=== PATIENT | female | born 1980 | race African-American/Black ===

== ENCOUNTER 2016-06-18 11:21 | Emergency (ER) | payer SELFPAY ==
[2016-06-18 11:26] VITALS: BP 156/91; BMI 32.3
--- NOTE | 2016-06-18 12:17 | DR.GENAD ---
HPI - PCP Primary Care Physician: mckenna - Complaint/Symptoms Chief Complaint:: patient stated she has been having head pressure with her sinuses for 2 to 3 weeks. since wednesday she has been worse. she stated she has a history of sinuses problems. - Source History Provided: Patient - Mode of Arrival Mode of Arrival: Ambulatory - Timing Onset of Chief Complaint: 06/01/16 PMH - PMH Past Medical History: Yes Past Medical History: Hypertension Past Surgical History: Yes Surgical History: - Family History History of Family Medical Conditions: Yes Family Medical History: Hypertension - Social History Does patient currently use any type of tobacco product: Yes Have you used tobacco products in the last 12 months: Yes Type of Tobacco Use: Cigarettes How many years tobacco product used: 12 Does any household member use tobacco: No Alcohol Use: Rarely Do you use any recreational Drugs:: No Lives With: Alone, Family Lives Where: Home - infectious screening In the last 2 months have you had wt loss of >10#?: NO Have you had fever, night sweats or hemotysis?: No Have you traveled outside the country in the last 6 months?: No Isolation: Standard ROS - Review of Systems Eyes: No Symptoms Reported ENTM: Ear Pain, Nose Discharge Respiratoy: No Symptoms Reported Cardiovascular: No Symptoms Reported Gastrointestinal/Abdominal: No Symptoms Reported Genitourinary: No Symptoms Reported Neurological: No Symptoms Reported Musculoskeletal: No Symptoms Reported Integumentary: No Symptoms Reported Hematologic/Lymphatic: No Symptoms Reported Endocrine: No Symptoms Reported Psychiatric: No Symptoms Reported All Other Systems: Reviewed and Negative PE - Vital Signs Vitals: Temperature 98.9 F Pulse Rate 59 Respiratory Rate 18 Blood Pressure 156/91 O2 Sat by Pulse Oximetry 98 - General Limitations: No Limitations General Appearance: Alert, In No Apparent Distress, Appears Intoxicated - Head Head Exam: Normal Inspection, Atraumatic - Eyes Eye exam: Normal Appearance, PERRL - ENT ENT Exam: Normal Oropharynx (Hyperpigmented linear nasal crease) External Ear Exam: Normal External Inspection TM/Canal Exam: Bilateral Normal Nose Exam: Other (turbinates boggy right >left) Mouth Exam: Normal Inspection Throat Exam: Normal Inspection - Neck Neck Exam: Normal Inspection - Chest Chest Inspection: Normal Inspection - Respiratory Respiratory Exam: Normal Lung Sounds Bilat Respiratory Exam: Bilateral Clear to Auscultation - Cardiovascular Cardiovascular Exam: Regular Rate - Abdominal Exam Abdominal Exam: Normal Inspection Abdominal Tenderness: negative: RUQ, RLQ, LUQ, LLQ, Epigastrium, Suprapubic, Diffuse, Mild, Moderate, Severe, Other - Extremities Extremities Exam: Normal Inspection - Back Back Exam: Normal Inspection - Neurologic Neurological Exam: Alert - Psychiatric Psychiatric Exam: Normal Affect, Normal Mood - Skin Skin Exam: Warm, Dry, Intact ROR - Labs Reviewed Laboratory Results Reviewed?: Yes - XRAY XRAY Interpreted by: Self (?ethmoidal sinusitis Left ) - Diagnosis Discharge Problem: Allergic rhinosinusitis Qualifiers: Allergic rhinitis trigger: pollen Allergic rhinitis seasonality: unspecified seasonality Qualified Code(s): J30.1 - Allergic rhinitis due to pollen - Discharge Plan Condition: Stable - Follow ups/Referrals Follow ups/Referrals: NFD,None [Primary Care Provider] - 3 days - Instructions
--- NOTE | 2016-06-18 12:43 | RAD ---
HISTORY: Left maxillary tenderness Study: Sinuses three view Comparison: None Findings: The frontal, ethmoid, sphenoid, and maxillary sinuses are clear as are the mastoid air cells. IMPRESSION: Clear paranasal sinuses Reported By:
== END 2016-06-18 12:51 | disposition home or self-care (01) ==
LOC: ER 11:37
DX: J30.1 Allergic rhinitis due to pollen (principal)
CPT/HCPCS: 70220; 99282

== ENCOUNTER 2016-08-24 06:16 | Emergency (ER) | payer SELFPAY ==
[2016-08-24 06:22] VITALS: BP 140/94; BMI 33.4
--- NOTE | 2016-08-24 06:47 | DR.GENAD ---
HPI - PCP Primary Care Physician: NFD - HPI Comment HPI Comment: WORSE THIS AM WHEN PATIENT WOKE UP. - Complaint/Symptoms Chief Complaint Doctors Comments: DIZZINESS, WEAKNESS, NAUSEA AND VOMITING TIMES ONE DAY. Chief Complaint:: "Yesterday I was feeling bad, but today I woke up and I am feeling really dizzy. I feel like I have to puke. I'm really light headed." - Nurses notes reviewed Nurses Notes Review: Yes - Source History Provided: Patient - Mode of Arrival Mode of Arrival: Ambulatory - Timing Onset of Chief Complaint: 08/23/16 Came on: Suddenly - Duration Duration: Constant Duration: Days - Severity Severity: Moderate PMH - PMH Past Medical History: Yes Past Medical History: Hypertension Past Surgical History: Yes Surgical History: - Family History History of Family Medical Conditions: Yes Family Medical History: Hypertension - Social History Does patient currently use any type of tobacco product: Yes Have you used tobacco products in the last 12 months: Yes Type of Tobacco Use: Cigarettes Does any household member use tobacco: Yes Alcohol Use: Occasionally Do you use any recreational Drugs:: No Lives With: Spouse Lives Where: Home - infectious screening In the last 2 months have you had wt loss of >10#?: NO Have you had fever, night sweats or hemotysis?: No Have you traveled outside the country in the last 6 months?: No Isolation: Standard ROS - Review of Systems Constitutional: No Symptoms Reported Eyes: No Symptoms Reported ENTM: No Symptoms Reported Respiratoy: No Symptoms Reported Cardiovascular: No Symptoms Reported Gastrointestinal/Abdominal: No Symptoms Reported Genitourinary: No Symptoms Reported Neurological: Weakness, Dizziness Musculoskeletal: No Symptoms Reported Integumentary: No Symptoms Reported Hematologic/Lymphatic: No Symptoms Reported All Other Systems: Reviewed and Negative PE - Vital Signs Vitals: Temperature 97.6 F Pulse Rate 72 Respiratory Rate 18 Blood Pressure 140/94 O2 Sat by Pulse Oximetry 97 - General Limitations: No Limitations General Appearance: Alert - Head Head Exam: Normal Inspection - Eyes Eye exam: Normal Appearance - ENT ENT Exam: Normal External Ear Exam External Ear Exam: Normal External Inspection TM/Canal Exam: Bilateral Normal Nose Exam: Normal Nose Exam Mouth Exam: Normal Inspection Throat Exam: Normal Inspection - Neck Neck Exam: Normal Inspection - Chest Chest Inspection: Symmetric Chest Wall Rise - Respiratory Respiratory Exam: Normal Lung Sounds Bilat Respiratory Exam: Bilateral Clear to Auscultation - Cardiovascular Cardiovascular Exam: Regular Rate, Normal Rhythm, Normal Heart Sounds - Abdominal Exam Abdominal Exam: Normal Bowel Sounds, Soft. negative: Tenderness - Extremities Extremities Exam: Normal Inspection - Back Back Exam: Normal Inspection - Neurologic Neurological Exam: Alert, Oriented X3 - Psychiatric Psychiatric Exam: Anxious - Skin Skin Exam: Normal Color MDM - Additional Information Additional Information Obtained From: Family - Differential Diagnosis Differential Diagnosis: DIZZINESS, VERTIGO, CVA, TIA, LABINRITHITIS Course - Treatment Treatment: SEE ORDERS. - Education/Counseling Education/Counseling: Patient, Family, Education Educated On: Treatment, Diagnosis, Needs for Follow Up ROR - Labs Reviewed Laboratory Results Reviewed?: Yes Result Diagrams: 08/24/16 07:02 08/24/16 07:02 Laboratory: WBC 7.1 X10^3/uL (3.6-10.0) 08/24/16 07:02 RBC 4.35 X10^6/uL (3.5-5.4) 08/24/16 07:02 Hgb 13.0 g/dL (12.0-16.0) 08/24/16 07:02 Hct 39.1 % (36.0-47.0) 08/24/16 07:02 MCV 89.7 fL (80.0-100.0) 08/24/16 07:02 MCH 30.0 pg (27.0-34.0) 08/24/16 07:02 MCHC 33.4 g/dL (33.0-35.0) 08/24/16 07:02 RDW 14.9 % (11.6-16.5) 08/24/16 07:02 Plt Count 187 X10^3/uL (150.0-450.0) 08/24/16 07:02 MPV 9.6 fL (7.4-11.0) 08/24/16 07:02 Neut % 55.5 % (42.0-75.0) 08/24/16 07:02 Lymph % 32.1 % (21.0-51.0) 08/24/16 07:02 [place] % 7.9 % (0.0-13.0) 08/24/16 07:02 Eos % 3.6 % (0.9-2.9) H 08/24/16 07:02 Baso % 0.9 % (0.2-1.0) 08/24/16 07:02 Neut # 3.9 x10^3/uL (2.2-4.8) 08/24/16 07:02 Lymph # 2.3 X10^3/uL (1.3-2.9) 08/24/16 07:02 [place] # 0.6 x10^3/uL (0.3-0.8) 08/24/16 07:02 Eos # 0.3 x10^3/uL (0.0-0.2) H 08/24/16 07:02 Baso # 0.1 X10^3/uL (0.0-0.1) 08/24/16 07:02 Absolute Nucleated RBC 0.0 /100WBC 08/24/16 07:02 Sodium 144 mmol/L (136-145) 08/24/16 07:02 Corrected Sodium TNP 08/24/16 07:02 Potassium 3.4 mmol/L (3.5-5.1) L 08/24/16 07:02 Chloride 109 mmol/L (98-107) H 08/24/16 07:02 Carbon Dioxide 28.2 mmol/L (21-32) 08/24/16 07:02 BUN 15 mg/dL (7-18) 08/24/16 07:02 Creatinine 1.19 mg/dL (0.55-1.02) H 08/24/16 07:02 Est GFR (MDRD) Af Amer > 60 (>60) 08/24/16 07:02 Est GFR (MDRD) Non-Af 54 (>60) L 08/24/16 07:02 Glucose 84 mg/dL (65-99) 08/24/16 07:02 Calcium 8.1 mg/dL (8.5-10.1) L 08/24/16 07:02 Corrected Calcium 8.7 mg/dL (8.5-10.1) 08/24/16 07:02 Total Bilirubin 0.20 mg/dL (0.2-1.0) 08/24/16 07:02 AST 15 Units/L (15-37) 08/24/16 07:02 ALT 20 Units/L (12-78) 08/24/16 07:02 Alkaline Phosphatase 69 Units/L (46-116) 08/24/16 07:02 Creatine Kinase 203 Units/L (26-192) H 08/24/16 07:02 CK-MB (CK-2) 1.0 ng/mL (0-4.0) 08/24/16 07:02 CK/CKMB % Calc 0.5 % (<4) 08/24/16 07:02 Troponin I < 0.02 ng/mL (0-1.5) 08/24/16 07:02 Total Protein 6.6 g/dL (6.4-8.2) 08/24/16 07:02 Albumin 3.3 g/dL (3.4-5.0) L 08/24/16 07:02 Globulin 3.3 g/dL (2.5-4.5) 08/24/16 07:02 Albumin/Globulin Ratio 1.0 Ratio (1.1-2.1) L 08/24/16 07:02 Specimen Type Clean catch urine 08/24/16 07:39 Urine Color Yellow (YELLOW) 08/24/16 07:39 Urine Appearance Slightly hazy (CLEAR) 08/24/16 07:39 Urine pH 6.0 (5.0 - 8.0) 08/24/16 07:39 Ur Specific [place] 1.020 (1.000-1.030) 08/24/16 07:39 Urine Protein Negative (NEGATIVE) 08/24/16 07:39 Urine Glucose (UA) Negative (NEGATIVE) 08/24/16 07:39 Urine Ketones Negative (NEGATIVE) 08/24/16 07:39 Urine Occult Blood Negative (NEGATIVE) 08/24/16 07:39 Urine Nitrite Negative (NEGATIVE) 08/24/16 07:39 Urine Bilirubin Negative (NEGATIVE) 08/24/16 07:39 Urine Urobilinogen Normal (NORMAL) 08/24/16 07:39 Ur Leukocyte Esterase 1+ (NEGATIVE) 08/24/16 07:39 Urine RBC 0-1 /HPF (NEGATIVE) 08/24/16 07:39 Urine WBC 4-8 /HPF (NEGATIVE) 08/24/16 07:39 Ur Squamous Epith Cells Moderate /HPF (NEGATIVE) 08/24/16 07:39 Urine Bacteria Trace /HPF (NEGATIVE) 08/24/16 07:39 Ur Culture Indicated? No/not indicated 08/24/16 07:39 - XRAY XRAY Interpreted by: Radiologist XRAY Findings: REPORT DISCUSS WITH PATIENT. - EKG Rhythm: NSR (EKG NOTED) - Diagnosis Discharge Problem: Dizziness, Vertigo - Discharge Plan Disposition: 01 HOME, SELF-CARE Condition: Stable Prescriptions: Meclizine HCl [ANTIVERT 25 MG *] 25 mg PO TID PRN #30 tab PRN Reason: MOTION SICKNESS Ondansetron HCl [Zofran Tab 4 mg] 4 mg PO Q8H PRN #12 tab PRN Reason: Nausea/Vomiting - Follow ups/Referrals Follow ups/Referrals: NFD,None [Primary Care Provider] - 3 days - Instructions Instructions: Dizziness, [id number], Vertigo, [id number] Additional Instructions: RETURN TO ED IF WORSE.
[2016-08-24] MEDS ORDERED: ANTIVERT TAB 25 MG PO ONE (06:59)
[2016-08-24] MEDS ORDERED: ZOFRAN TAB 4 MG PO ONE (07:00)
[2016-08-24 07:16] LABS: BASOPHILS # (AUTO) 0.1 X10^3/uL (0.0-0.1); BASOPHILS % (AUTO) 0.9 % (0.2-1.0); EOSINOPHILS # (AUTO) 0.3 x10^3/uL (0.0-0.2); EOSINOPHILS % (AUTO) 3.6 % (0.9-2.9); HEMATOCRIT 39.1 % (36.0-47.0); LYMPHOCYTES # (AUTO) 2.3 X10^3/uL (1.3-2.9); LYMPHOCYTES % (AUTO) 32.1 % (21.0-51.0); MEAN CORPUSCULAR HGB CONC 33.4 g/dL (33.0-35.0); MEAN CORPUSCULAR VOLUME 89.7 fL (80.0-100.0); MEAN PLATELET VOLUME 9.6 fL (7.4-11.0); MONOCYTES # (AUTO) 0.6 x10^3/uL (0.3-0.8); MONOCYTES % (AUTO) 7.9 % (0.0-13.0); NEUTROPHILS # (AUTO) 3.9 x10^3/uL (2.2-4.8); NEUTROPHILS % (AUTO) 55.5 % (42.0-75.0); PLATELET COUNT 187 X10^3/uL (150.0-450.0); RED BLOOD COUNT 4.35 X10^6/uL (3.5-5.4); RED CELL DISTRIBUTION WIDTH 14.9 % (11.6-16.5); WHITE BLOOD COUNT 7.1 X10^3/uL (3.6-10.0)
[2016-08-24 07:24] LABS: ALANINE AMINOTRANSFERASE 20 Units/L (12-78); ALBUMIN 3.3 g/dL (3.4-5.0); ALKALINE PHOSPHATASE 69 Units/L (46-116); ASPARTATE AMINO TRANSFERASE 15 Units/L (15-37); BLOOD UREA NITROGEN 15 mg/dL (7-18); CALCIUM 8.1 mg/dL (8.5-10.1); CARBON DIOXIDE 28.2 mmol/L (21-32); CHLORIDE 109 mmol/L (98-107); COR CA(FOR HYPOALB) 8.7 mg/dL (8.5-10.1); CREATININE 1.19 mg/dL (0.55-1.02); GLUCOSE 84 mg/dL (65-99); SODIUM 144 mmol/L (136-145); TOTAL PROTEIN 6.6 g/dL (6.4-8.2); eGFR BLACK RACES > 60 (>60); eGFR NON BLACK RACES 54 (>60)
--- NOTE | 2016-08-24 07:25 | CT ---
HISTORY: Dizziness Study: CT brain without contrast Comparison: None available Technique: Multiple axial images of the brain were obtained from the skull base to the vertex without administr ation of IV contrast. Coronal and sagittal reformats were performed. Dose reduction procedures were used with MA/kv adjusted for body size. Findings: No acute intraparenchymal hemorrhage or mass can be identified. No extra-axial fluid collections ar e seen. No alteration in the attenuation of the brain parenchyma can be identified to suggest acute or subacute ischemic change. The ventricular system is symmetric and nondilated. The extracranial structures are grossly unremarkable. IMPRESSION: No significant intracranial abnormality identified Reported By:
[2016-08-24 07:32] LABS: CKMB % 0.5 % (<4); CREATINE KINASE 203 Units/L (26-192); TROPONIN I < 0.02 ng/mL (0-1.5)
[2016-08-24] MEDS ORDERED: K-DUR TAB 20 MEQ PO ONE ×2 (07:46→07:51)
[2016-08-24 07:50] LABS: BILIRUBIN,URINE NEGATIVE (NEGATIVE); BLOOD/HEMOGLOBIN,URINE NEGATIVE (NEGATIVE); GLUCOSE, URINE NEGATIVE (NEGATIVE); KETONES,URINE NEGATIVE (NEGATIVE); LEUKOCYTE ESTERASE ,URINE 1+ (NEGATIVE); NITRITES,URINE NEGATIVE (NEGATIVE); PROTEIN,URINE NEGATIVE (NEGATIVE); UROBILINOGEN,URINE NORMAL (NORMAL)
[2016-08-24] MEDS ORDERED: ZOFRAN TAB 4 MG ONE (07:51)
[2016-08-24] MEDS ORDERED: ANTIVERT TAB 25 MG ONE (07:52)
[2016-08-24 08:05] LABS: APPEARANCE,URINE SLIGHTLY HAZY (CLEAR); BACTERIA,URINE TRACE /HPF (NEGATIVE); COLOR,URINE YELLOW (YELLOW); RBC,URINE 0-1 /HPF (NEGATIVE); SQUAMOUS EPITHELIAL CELL,UR MODERATE /HPF (NEGATIVE)
== END 2016-08-24 08:20 | disposition home or self-care (01) ==
LOC: ER 06:16
DX: R42 Dizziness and giddiness (principal)
CPT/HCPCS: 36415; 70450; 80053; 81001; 82550; 82553; 84484; 85025; 93005; 93010; 99283; S0181

== ENCOUNTER 2016-12-10 12:29 | Emergency (ER) | payer SELFPAY ==
[2016-12-10 12:32] VITALS: BP 152/92; BMI 31.1
--- NOTE | 2016-12-10 12:47 | DR.GENAD ---
HPI - PCP Primary Care Physician: NFD - Complaint/Symptoms Chief Complaint Doctors Comments: Patient reports that she has been working 12 hours daily for two weeks and not getting her rest. She complains of left cheek swelling. Chief Complaint:: PT C/O SWOLLEN LT SIDE OF FACE AND BACK PAIN. PT STATES SHE HAS A SYNCOPAL EPISODE LAST NIGHT AND HER SAID SHE HIT HER FACE ON THE BED POST. PT STATES THIS HAS HAPPENED BEFORE WHEN SHE HAD AN ANXIETY ATTACK. - Source History Provided: Patient - Mode of Arrival Mode of Arrival: Ambulatory - Timing Onset of Chief Complaint: 12/09/16 PMH - PMH Past Medical History: Yes Past Medical History: Hypertension Past Surgical History: Yes Surgical History: - Family History History of Family Medical Conditions: Yes Family Medical History: Hypertension - Social History Does patient currently use any type of tobacco product: Yes Have you used tobacco products in the last 12 months: Yes Type of Tobacco Use: Cigarettes Does any household member use tobacco: Yes Alcohol Use: Rarely Do you use any recreational Drugs:: No Lives With: Family Lives Where: Home - infectious screening In the last 2 months have you had wt loss of >10#?: NO Have you had fever, night sweats or hemotysis?: No Have you traveled outside the country in the last 6 months?: No Isolation: Standard ROS - Review of Systems Eyes: No Symptoms Reported ENTM: No Symptoms Reported Respiratoy: No Symptoms Reported Cardiovascular: No Symptoms Reported Gastrointestinal/Abdominal: No Symptoms Reported Genitourinary: No Symptoms Reported Neurological: No Symptoms Reported Musculoskeletal: No Symptoms Reported Integumentary: No Symptoms Reported Hematologic/Lymphatic: No Symptoms Reported Endocrine: No Symptoms Reported Psychiatric: No Symptoms Reported All Other Systems: Reviewed and Negative PE - Vital Signs Vitals: Temperature 98.2 F Pulse Rate 79 Respiratory Rate 20 Blood Pressure 152/92 O2 Sat by Pulse Oximetry 97 - General Limitations: No Limitations General Appearance: Alert, In No Apparent Distress - Head Head Exam: Normal Inspection, Atraumatic - Eyes Eye exam: Normal Appearance, PERRL, EOMI - ENT ENT Exam: Mucous Membranes Moist, Other (bilateral boggy turbinates) External Ear Exam: Normal External Inspection TM/Canal Exam: Bilateral Normal Nose Exam: Normal Nose Exam Mouth Exam: Normal Inspection Throat Exam: Normal Inspection - Neck Neck Exam: Normal Inspection - Chest Chest Inspection: Normal Inspection - Respiratory Respiratory Exam: Normal Lung Sounds Bilat Respiratory Exam: Bilateral Clear to Auscultation - Cardiovascular Cardiovascular Exam: Regular Rate, Normal Rhythm - Abdominal Exam Abdominal Exam: Normal Inspection, Normal Bowel Sounds Abdominal Tenderness: negative: RUQ, RLQ, LUQ, LLQ, Epigastrium, Suprapubic, Diffuse, Mild, Moderate, Severe, Other - Extremities Extremities Exam: Normal Inspection - Back Back Exam: Normal Inspection, Full ROM - Neurologic Neurological Exam: Alert, Oriented X3, CN II-XII Intact - Psychiatric Psychiatric Exam: Normal Affect - Skin Skin Exam: Warm, Dry, Intact Course - Education/Counseling Education/Counseling: Patient, Education - Diagnosis Discharge Problem: Exhaustion Allergic rhinitis Qualifiers: Chronicity: chronic Allergic rhinitis trigger: unspecified Allergic rhinitis seasonality: non-seasonal Qualified Code(s): J30.89 - Other allergic rhinitis - Discharge Plan Condition: Stable - Follow ups/Referrals Follow ups/Referrals: NFD,None [Primary Care Provider] - 3 days - Instructions
== END 2016-12-10 13:06 | disposition home or self-care (01) ==
LOC: ER 12:35
DX: R53.83 Other fatigue (principal); J30.89 Other allergic rhinitis
CPT/HCPCS: 99281; 99282

== ENCOUNTER 2016-12-17 21:19 | Emergency (ER) | payer SELFPAY ==
[2016-12-17 21:26] VITALS: BMI 31.1
--- NOTE | 2016-12-17 22:52 | DR.GENAD ---
HPI - PCP Primary Care Physician: NFD - HPI Comment HPI Comment: PATIENT HAVE COLD, COUGH AND CONGESTION WITH SINUS HEADACHE FOR FEW DAYS. GETTING WORSE. TODAY, CHILLS AND COLD SWEATS STARTED. WEAK AND FATIGUE. - Complaint/Symptoms Chief Complaint Doctors Comments: FEVER, CHILLS AND BODY ACHES WITH COLD SWEATS TODAY. Chief Complaint:: CHILLS NIGHT SWEATS - Nurses notes reviewed Nurses Notes Review: Yes - Source History Provided: Patient - Mode of Arrival Mode of Arrival: Ambulatory - Timing Onset of Chief Complaint: 12/17/16 Came on: Suddenly - Duration Duration: Constant Duration: Days - Severity Severity: Moderate PMH - PMH Past Medical History: Yes Past Medical History: Hypertension Past Surgical History: Yes Surgical History: - Family History History of Family Medical Conditions: Yes Family Medical History: Coronary Artery Disease, Hypertension - Social History Does patient currently use any type of tobacco product: Yes Have you used tobacco products in the last 12 months: Yes Type of Tobacco Use: Cigarettes Does any household member use tobacco: No Alcohol Use: Occasionally Do you use any recreational Drugs:: No Lives With: Family Lives Where: Home - infectious screening In the last 2 months have you had wt loss of >10#?: NO Have you had fever, night sweats or hemotysis?: No Have you traveled outside the country in the last 6 months?: No Isolation: Standard ROS - Review of Systems Constitutional: Chills, Diaphoresis, Fever, Weakness, Fatigue Eyes: No Symptoms Reported. negative: Eye Pain, Discharge ENTM: Nose Discharge, Nose Congestion, Throat Pain. negative: Ear Pain Respiratoy: Productive Cough. negative: Short of Breath, Wheezing Cardiovascular: No Symptoms Reported. negative: Chest Pain, Edema Gastrointestinal/Abdominal: No Symptoms Reported, Nausea. negative: Abdominal Pain, Diarrhea, Vomiting Genitourinary: No Symptoms Reported. negative: Dysuria, Frequency, Hematuria Neurological: Headache, Weakness, Dizziness Musculoskeletal: Muscle Pain Integumentary: No Symptoms Reported. negative: Rash, Juandice Hematologic/Lymphatic: No Symptoms Reported Endocrine: No Symptoms Reported All Other Systems: Reviewed and Negative PE - Vital Signs Vitals: Temperature 98.2 F Pulse Rate [Left] 65 Pulse Rate 63 Respiratory Rate 14 Blood Pressure [Right Arm] 131/77 Blood Pressure 135/85 O2 Sat by Pulse Oximetry 100 - General Limitations: No Limitations General Appearance: Alert - Head Head Exam: Normal Inspection - Eyes Eye exam: Normal Appearance - ENT ENT Exam: Normal External Ear Exam External Ear Exam: Normal External Inspection TM/Canal Exam: Bilateral Normal Nose Exam: Normal Nose Exam Mouth Exam: Normal Inspection Throat Exam: Normal Inspection - Neck Neck Exam: Normal Inspection - Chest Chest Inspection: Symmetric Chest Wall Rise - Respiratory Respiratory Exam: Normal Lung Sounds Bilat Respiratory Exam: Bilateral Clear to Auscultation - Cardiovascular Cardiovascular Exam: Regular Rate, Normal Rhythm - Abdominal Exam Abdominal Exam: Normal Bowel Sounds - Extremities Extremities Exam: Normal Inspection - Back Back Exam: Normal Inspection - Psychiatric Psychiatric Exam: Normal Affect, Normal Mood - Skin Skin Exam: Erythema MDM - Differential Diagnosis Differential Diagnosis: FLU, BRONCHITIS, SINUSITIS Course - Treatment Treatment: SEE ORDERS. PO MEDS IN ED. - Education/Counseling Education/Counseling: Patient, Education Educated On: Treatment, Diagnosis, Needs for Follow Up ROR - Labs Reviewed Laboratory: Influenza Type A (PCR) Negative (NEGATIVE) 12/17/16 23:01 Influenza Type B (PCR) Negative (NEGATIVE) 12/17/16 23:01 - Diagnosis Discharge Problem: Bronchitis Sinusitis Qualifiers: Sinusitis location: unspecified location Chronicity: acute Recurrence: not specified as recurrent Qualified Code(s): J01.90 - Acute sinusitis, unspecified - Discharge Plan Disposition: 01 HOME, SELF-CARE Condition: Stable Prescriptions: Amoxicillin [Amoxil 875 mg] 875 mg PO Q12H #20 tab Cetirizine HCl [Zyrtec Tab 10 mg] 10 mg PO DAILY PRN #30 tab PRN Reason: Promethazine W/Codeine [PHENERGAN W/CODEINE 6.25mg/10mg (5mL) *] 10 ml PO Q6H PRN #120 ml PRN Reason: Cough - Follow ups/Referrals Follow ups/Referrals: NFD,None [Primary Care Provider] - 3 days - Instructions Instructions: Sinusitis, Adult, [id number], Acute Bronchitis, [id number] Additional Instructions: RETURN TO ED IF WORSE.
[2016-12-17] MEDS ORDERED: AMOXIL CAP 500 MG PO ONE (23:01)
[2016-12-17] MEDS ORDERED: ZyrTEC TAB 10 MG PO ONE (23:02)
[2016-12-17 23:42] VITALS: BP 131/77
== END 2016-12-17 23:38 | disposition home or self-care (01) ==
LOC: ER 21:37
DX: J40 Bronchitis, not specified as acute or chronic (principal); J01.80 Other acute sinusitis
CPT/HCPCS: 87502; 99282

== ENCOUNTER 2017-01-15 15:51 | Emergency (ER) | payer SELFPAY ==
[2017-01-15 15:55] VITALS: BMI 32.3
--- NOTE | 2017-01-15 17:27 | DR.GENAD ---
HPI - PCP Primary Care Physician: NFD - HPI Comment HPI Comment: GETTING WORSE. COUGH PRODUCTIVE WITH YELLOW SPUTUM. SOME CHEST DISCOMFORT PRESENT. MEDS TRIED SO FAR NOT HELPING. - Complaint/Symptoms Chief Complaint Doctors Comments: FEVER, CHILLS, COUGH, CONGESTION AND HEADACHE TIMES 3 DAYS. Chief Complaint:: PT C/O H/A, BODY ACHES, FEVER, CHILLS. PT STATES THEY STARTED X 3 DAYS AGO. - Nurses notes reviewed Nurses Notes Review: Yes - Source History Provided: Patient - Mode of Arrival Mode of Arrival: Ambulatory - Timing Onset of Chief Complaint: 01/12/17 Came on: Suddenly - Duration Duration: Constant Duration: Days - Severity Severity: Moderate PMH - PMH Past Medical History: Yes Past Medical History: Hypertension Past Surgical History: Yes Surgical History: - Family History History of Family Medical Conditions: Yes Family Medical History: Coronary Artery Disease, Hypertension - Social History Does patient currently use any type of tobacco product: Yes Have you used tobacco products in the last 12 months: Yes Type of Tobacco Use: Cigarettes Does any household member use tobacco: Yes Alcohol Use: None Do you use any recreational Drugs:: No Lives With: Family Lives Where: Home - infectious screening In the last 2 months have you had wt loss of >10#?: NO Have you had fever, night sweats or hemotysis?: No Have you traveled outside the country in the last 6 months?: No Isolation: Standard ROS - Review of Systems Constitutional: No Symptoms Reported Eyes: No Symptoms Reported ENTM: Nose Discharge, Nose Congestion, Throat Pain. negative: Ear Pain Respiratoy: Non-Productive Cough. negative: Productive Cough, Short of Breath, Wheezing, Hemoptysis Cardiovascular: Chest Pain Gastrointestinal/Abdominal: No Symptoms Reported Genitourinary: No Symptoms Reported Neurological: No Symptoms Reported Musculoskeletal: No Symptoms Reported Integumentary: No Symptoms Reported Hematologic/Lymphatic: No Symptoms Reported Endocrine: No Symptoms Reported All Other Systems: Reviewed and Negative PE - Vital Signs Vitals: Temperature 97.6 F Pulse Rate [Left] 58 Pulse Rate 67 Respiratory Rate 16 Blood Pressure [Right Arm] 139/88 Blood Pressure 159/91 O2 Sat by Pulse Oximetry 99 - General Limitations: No Limitations General Appearance: Alert - Head Head Exam: Normal Inspection - Eyes Eye exam: Normal Appearance - ENT ENT Exam: Normal External Ear Exam External Ear Exam: Normal External Inspection TM/Canal Exam: Bilateral Bulging Nose Exam: Normal Nose Exam Mouth Exam: Normal Inspection Throat Exam: Tonsillar Erythema. negative: Tonsillomegaly, Tonsillar Exudate, R Peritonsillar Mass, L Peritonsillar Mass, Muffled Voice - Neck Neck Exam: negative: Trachea Midline, Tenderness, Meningismus, Lymphadenopathy - Chest Chest Inspection: Symmetric Chest Wall Rise - Respiratory Respiratory Exam: Normal Lung Sounds Bilat Respiratory Exam: Bilateral Clear to Auscultation - Cardiovascular Cardiovascular Exam: Regular Rate - Abdominal Exam Abdominal Exam: Normal Inspection - Extremities Extremities Exam: Normal Inspection - Back Back Exam: Normal Inspection - Neurologic Neurological Exam: Alert, Oriented X3 - Psychiatric Psychiatric Exam: Normal Affect - Skin Skin Exam: Warm MDM - Differential Diagnosis Differential Diagnosis: SINUSITIS , BRONCHITIS, PNEUMONIA Course - Treatment Treatment: SEE ORDERS. - Education/Counseling Education/Counseling: Patient, Education Educated On: Treatment, Diagnosis, Needs for Follow Up ROR - Labs Reviewed Laboratory Results Reviewed?: Yes Laboratory: 01/15/17 17:58 Throat Throat Culture - Final HCG, Qual Negative <10 mIU/mL 01/15/17 18:20 Influenza Type A (PCR) Negative (NEGATIVE) 01/15/17 17:58 Influenza Type B (PCR) Negative (NEGATIVE) 01/15/17 17:58 Streptococcus Screen Negative (NEGATIVE) 01/15/17 17:58 - XRAY XRAY Interpreted by: Radiologist XRAY Findings: REPORT DISCUSS WITH PATIENT. - Diagnosis Discharge Problem: Bronchitis Sinusitis Qualifiers: Sinusitis location: unspecified location Chronicity: acute Recurrence: not specified as recurrent Qualified Code(s): J01.90 - Acute sinusitis, unspecified - Discharge Plan Disposition: HOME, SELF-CARE Condition: Stable Prescriptions: Amoxicillin [Amoxil 875 mg] 875 mg PO Q12H #20 tab Cetirizine HCl [Zyrtec Tab 10 mg] 10 mg PO DAILY #30 tab Promethazine W/Codeine [PHENERGAN W/CODEINE 6.25mg/10mg (5mL) *] 10 ml PO Q6H PRN #120 ml PRN Reason: Cough - Follow ups/Referrals Follow ups/Referrals: NFD,None [Primary Care Provider] - 3 days - Instructions Instructions: Sinusitis, Adult, [id number], Acute Bronchitis, [id number] Additional Instructions: RETURN TO ED IF WORSE.
[2017-01-15 18:46] LABS: SERUM PREGNANCY TEST, QUAL NEGATIVE <10 mIU/mL
--- NOTE | 2017-01-15 19:18 | RAD ---
Chest, two views Indication: Headache, body aches, fever, chills Comparison: None Findings: The heart size is normal. No focal consolidation, effusion or pneumothorax is identified. O sseous thorax is unremarkable. Impression: No acute cardiopulmonary abnormality. Reported By:
[2017-01-15] MEDS ORDERED: ZyrTEC TAB 10 MG ONE (19:29)
[2017-01-15] MEDS ORDERED: AMOXIL CAP 500 MG PO ONE ×2 (19:29→19:32)
[2017-01-15] MEDS ORDERED: PHENERGAN W/CODEINE 6.25MG/10MG ONE (19:30)
[2017-01-15] MEDS ORDERED: PHENERGAN W/CODEINE 6.25MG/10MG PO ONE (19:32)
[2017-01-15] MEDS ORDERED: ZyrTEC TAB 10 MG PO ONE (19:33)
[2017-01-15 19:40] VITALS: BP 139/88
[2017-01-18] MEDS ORDERED: NS 1000 ML 1,000 ML IV SCH (23:45)
== END 2017-01-15 19:40 | disposition home or self-care (01) ==
LOC: ER 16:00
DX: J40 Bronchitis, not specified as acute or chronic (principal); J01.80 Other acute sinusitis
CPT/HCPCS: 36415; 71020; 84703; 87070; 87502; 87880; 99282; 99283

== ENCOUNTER 2017-05-01 14:23 | Emergency (ER) | payer SELFPAY ==
[2017-05-01 14:28] VITALS: BP 139/80
[2017-05-01 14:35] VITALS: BMI 33.7
--- NOTE | 2017-05-01 14:57 | DR.GENAD ---
HPI - PCP Primary Care Physician: NFD - Complaint/Symptoms Chief Complaint:: PATIENT C/O LOWER BACK PAIN, AND CONSTANT, SORE STOMACH PAIN. SHE STATES THAT SHE JUST GOT HER MENSTRUAL CYCLE YESTERDAY FOR THE FIRST TIME SINCE .PATIENT STATES SHE HAS NEVER HAD PAIN LIKE THIS BEFORE. PATIENT STATES THAT SHE TOOK HOME TEST AND IT WAS NEGATIVE Self Treatment fo Chief Complaint: IBUPROFEN - Nurses notes reviewed Nurses Notes Review: Yes - Source History Provided: Patient - Mode of Arrival Mode of Arrival: Ambulatory - Timing Onset of Chief Complaint: 04/26/17 PMH - PMH Past Medical History: Yes Past Medical History: Hypertension Past Surgical History: Yes Surgical History: - Family History History of Family Medical Conditions: Yes Family Medical History: Coronary Artery Disease, Hypertension Family Medical History Comment: HYPOTHYROIDISM - Social History Does patient currently use any type of tobacco product: Yes Have you used tobacco products in the last 12 months: Yes Type of Tobacco Use: Cigarettes Alcohol Use: Occasionally Do you use any recreational Drugs:: No Lives With: Family Lives Where: Home - infectious screening In the last 2 months have you had wt loss of >10#?: NO Have you had fever, night sweats or hemotysis?: No Have you traveled outside the country in the last 6 months?: No ROS - Review of Systems Constitutional: No Symptoms Reported Eyes: No Symptoms Reported ENTM: Throat Pain Respiratoy: No Symptoms Reported Cardiovascular: No Symptoms Reported Gastrointestinal/Abdominal: No Symptoms Reported Genitourinary: No Symptoms Reported, Other (curreently menstruating) Neurological: No Symptoms Reported Musculoskeletal: Back Pain Integumentary: No Symptoms Reported Hematologic/Lymphatic: No Symptoms Reported Endocrine: No Symptoms Reported Psychiatric: No Symptoms Reported All Other Systems: Reviewed and Negative PE - Vital Signs Vitals: Temperature 97.3 F Pulse Rate [Left Brachial] 72 Pulse Rate 72 Respiratory Rate 22 Blood Pressure [Left Arm] 139/80 Blood Pressure [Right Arm] 139/88 Blood Pressure 139/80 O2 Sat by Pulse Oximetry 100 - General Limitations: No Limitations General Appearance: Alert, In No Apparent Distress - Head Head Exam: Normal Inspection - Eyes Eye exam: Normal Appearance - ENT ENT Exam: Normal Exam, Normal Oropharynx - Neck Neck Exam: Normal Inspection - Chest Chest Inspection: Normal Inspection - Respiratory Respiratory Exam: Normal Lung Sounds Bilat - Cardiovascular Cardiovascular Exam: Regular Rate, Normal Rhythm, +S1, +S2 - Abdominal Exam Abdominal Exam: Normal Inspection, Normal Bowel Sounds, Soft - Extremities Extremities Exam: Normal Inspection - Back Back Exam: Normal Inspection - Neurologic Neurological Exam: Alert, Oriented X3 - Psychiatric Psychiatric Exam: Normal Affect, Normal Mood - Skin Skin Exam: Warm, Dry, Intact, Normal Color ROR - Labs Reviewed Laboratory: HCG, Qual Negative <10 mIU/mL 05/01/17 15:00 S. pyogenes (TEM-PCR) Not detected (NOT DETECT) 05/01/17 15:43 - Diagnosis Discharge Problem: Menstrual cramps, Sore throat - Discharge Plan Disposition: HOME, SELF-CARE Condition: Stable - Follow ups/Referrals Follow ups/Referrals: NFD,None [Primary Care Provider] - 3 days - Instructions Instructions: Dysmenorrhea, Sore Throat, [id number]
[2017-05-01] MEDS ORDERED: TORADOL 60 MG VIAL IM ONE (15:00)
[2017-05-01 15:31] LABS: SERUM PREGNANCY TEST, QUAL NEGATIVE <10 mIU/mL
[2017-05-01] MEDS ORDERED: TORADOL 60 MG VIAL ONE (15:32)
== END 2017-05-01 16:49 | disposition home or self-care (01) ==
LOC: ER 14:23
DX: N94.6 Dysmenorrhea, unspecified (principal); J02.9 Acute pharyngitis, unspecified
CPT/HCPCS: 36415; 84703; 87651; 96372; 99282; J1885

== ENCOUNTER 2017-06-01 17:37 | Emergency (ER) | payer SELFPAY ==
[2017-06-01 17:42] VITALS: BP 128/89; BMI 33.9
--- NOTE | 2017-06-01 18:20 | DR.GENAD ---
HPI - PCP Primary Care Physician: [email or web address] - HPI Comment HPI Comment: HISTORY CHRONIC HEADACHE DIADNOSE MIGRAINE. MEDS AT HOME DID NOT HELP HEADACHE. NO TRAUMA. NO SINUS SYMPTOMS. NAUSEA BUT NO VOMITING. - Complaint/Symptoms Chief Complaint Doctors Comments: PERSISTENT HEADACHE TIMES 3 DAYS. Chief Complaint:: headache since Wednesday no relief from motrin or a goody powder - Nurses notes reviewed Nurses Notes Review: Yes - Source History Provided: Patient - Mode of Arrival Mode of Arrival: Ambulatory - Timing Onset of Chief Complaint: 05/29/17 Came on: Suddenly - Duration Duration: Constant Duration: Days - Severity Severity: Moderate PMH - PMH Past Medical History: Yes Past Medical History: Hypertension Past Surgical History: Yes Surgical History: - Family History History of Family Medical Conditions: Yes Family Medical History: Coronary Artery Disease, Hypertension - Social History Does any household member use tobacco: Yes Alcohol Use: Occasionally Do you use any recreational Drugs:: No Lives With: Family Lives Where: Home - infectious screening In the last 2 months have you had wt loss of >10#?: NO Have you had fever, night sweats or hemotysis?: No Have you traveled outside the country in the last 6 months?: No Isolation: Standard ROS - Review of Systems Constitutional: No Symptoms Reported Eyes: No Symptoms Reported. negative: Eye Pain, Tearing, Discharge ENTM: No Symptoms Reported. negative: Ear Pain, Nose Discharge, Nose Congestion , Throat Pain Respiratoy: No Symptoms Reported. negative: Productive Cough, Short of Breath, Wheezing, Hemoptysis Cardiovascular: No Symptoms Reported. negative: Chest Pain Gastrointestinal/Abdominal: Nausea. negative: Abdominal Pain, Vomiting Genitourinary: No Symptoms Reported. negative: Dysuria, Frequency, Hematuria Neurological: Headache. negative: Dizziness Musculoskeletal: No Symptoms Reported Integumentary: No Symptoms Reported Hematologic/Lymphatic: No Symptoms Reported Endocrine: No Symptoms Reported All Other Systems: Reviewed and Negative PE - Vital Signs Vitals: Temperature 98.8 F Pulse Rate 74 Respiratory Rate 18 Blood Pressure [Left Arm] 139/80 Blood Pressure [Right Arm] 139/88 Blood Pressure 128/89 O2 Sat by Pulse Oximetry 100 - General Limitations: No Limitations General Appearance: Alert - Head Head Exam: Normal Inspection - Eyes Eye exam: Normal Appearance - ENT ENT Exam: Normal External Ear Exam External Ear Exam: Normal External Inspection TM/Canal Exam: Bilateral Normal Nose Exam: Normal Nose Exam Mouth Exam: Normal Inspection Throat Exam: Normal Inspection - Neck Neck Exam: Trachea Midline - Chest Chest Inspection: Symmetric Chest Wall Rise - Respiratory Respiratory Exam: Normal Lung Sounds Bilat Respiratory Exam: Bilateral Clear to Auscultation - Cardiovascular Cardiovascular Exam: Regular Rate, Normal Rhythm, Normal Heart Sounds - Abdominal Exam Abdominal Exam: Normal Bowel Sounds, Soft. negative: Tenderness - Extremities Extremities Exam: Normal Inspection - Back Back Exam: Normal Inspection - Neurologic Neurological Exam: Alert, Oriented X3, CN II-XII Intact, Normal Gait, Reflexes Normal. negative: Motor Sensory Deficit - Psychiatric Psychiatric Exam: Normal Affect, Normal Mood - Skin Skin Exam: Normal Color MDM - Differential Diagnosis Differential Diagnosis: MIGRAINE HEADACHE, SINUSITIS Course - Treatment Treatment: SEE ORDERS. IM PAIN MED IN ED. - Reevaluation 1st: Improved - Education/Counseling Education/Counseling: Patient, Education Educated On: Treatment, Diagnosis, Needs for Follow Up - Diagnosis Discharge Problem: Migraine headache Qualifiers: Migraine type: unspecified Status migrainosus presence: with status migrainosus Intractability: intractable Qualified Code(s): G43.911 - Migraine, unspecified, intractable, with status migrainosus - Discharge Plan Disposition: HOME, SELF-CARE Condition: Stable Prescriptions: [id number] [Fioricet Tab] 1 tab PO Q8H PRN #30 tab PRN Reason: Migraine Headache - Follow ups/Referrals Follow ups/Referrals: NFD,None [Primary Care Provider] - 1 day Gustavo Ro [STAFF PHYSICIAN] - 1 day - Instructions Instructions: Migraine Headache, [id number] Additional Instructions: RETURN TO ED IF WORSE.
[2017-06-01] MEDS ORDERED: PHENERGAN INJ 25 MG IM ONE (18:24)
[2017-06-01] MEDS ORDERED: DEMEROL INJ IM ONE (18:24)
[2017-06-01] MEDS ORDERED: DEMEROL INJ ONE (18:26)
[2017-06-01] MEDS ORDERED: PHENERGAN INJ 25 MG ONE (18:26)
== END 2017-06-01 19:08 | disposition home or self-care (01) ==
LOC: ER 17:44
DX: G43.911 Migraine, unspecified, intractable, with status migrainosus (principal)
CPT/HCPCS: 96372; 99282; J2175; J2550